=== PATIENT | male | born 1985 | race Caucasian/White ===

== ENCOUNTER 2018-03-06 21:05 | Observation (INO) | payer BC ==
[2018-03-06] MEDS ORDERED: Ondansetron ODT 4 MG TAB ONE (21:34)
[2018-03-06 21:59] LABS: #Basophils 0.1 thou/uL (0.0-0.2); #Eosinphils 0.2 thou/uL (0.0-0.7); #Lymphocytes 2.3 thou/uL (1.20-3.40); #Monocytes 0.8 thou/uL (0.11-0.59); #Neutrophils 6.8 thou/uL (1.40-6.50); %Basophils 0.6 % (0.0-1.0); %Eosinophils 1.8 % (0.0-10.0); %Lymphocytes 22.7 % (21.0-51.0); %Monocytes 8.1 % (0.0-10.0); %Neutrophils 66.7 % (42.0-75.0); Hemoglobin 16.8 g/dL (14.0-18.0); Mean Corpuscular HGB CONC 35.6 g/dL (32.0-36.0); Mean Corpuscular Hemoglobin 32.9 pg (27.0-31.0); Mean Corpuscular Volume 92.6 fl (80.0-94.0); Mean Platelet Volume 8.3 fL (7.4-10.4); Platelet Count 326 thou/uL (130-400); RBC Distribution Width 11.7 % (11.5-14.5); White Blood Cell (WBC) Count 10.2 thou/uL (4.8-10.8)
[2018-03-06 22:10] LABS: ALT (SGPT) 26 U/L (8-55); AST (SGOT) 20 U/L (5-34); Albumin 4.8 g/dL (3.5-5.0); Alkaline Phosphatase 67 U/L (40-150); Anion Gap 14 mmol/L (10-20); BUN (Urea Nitrogen) 17 mg/dL (8.9-20.6); Bilirubin, Total 0.5 mg/dL (0.2-1.2); Calc. Creatinine Clearance 0 mL/min (70-130); Carbon Dioxide 27 mmol/L (22-29); Chloride 101 mmol/L (98-107); Estimated GFR-MDRD 87; Globulin 3.1 g/dL (2.4-3.5); Glucose 115 mg/dL (70-105); Lipase 14 U/L (8-78); Potassium 3.9 mmol/L (3.5-5.1); Protein, Total 7.9 g/dL (6.0-8.3); Sodium 138 mmol/L (136-145)
[2018-03-06] MEDS ORDERED: Lidocaine 2% Jelly 5 ML TUBE ONE (22:31)
[2018-03-06] MEDS ORDERED: Benzocaine 20% Spray 60 ML CAN ONE (22:31)
[2018-03-06] MEDS ORDERED: Promethazine HCl 25 MG/ML VIAL ONE (22:32)
[2018-03-06] MEDS ORDERED: Ketorolac Tromethamine 30 MG/ML VIAL ONE (22:32)
[2018-03-06] MEDS ORDERED: Dextrose 5% in Water 1,000 ML IV PRN (22:50)
[2018-03-06] MEDS ORDERED: hydrALAZINE 20 MG/ML VIAL SLOW IVP PRN (22:50)
[2018-03-06] MEDS ORDERED: Morphine 4 MG/ML VIAL SLOW IVP PRN ×2 (22:50)
[2018-03-06] MEDS ORDERED: Dextrose 50% Abboject 50 ML SYRINGE SLOW IVP PRN (22:50)
[2018-03-06] MEDS ORDERED: Acetaminophen 1,000 MG in Premix Bag 1 BAG IVPB PRN (22:53)
[2018-03-06] MEDS ORDERED: Ketorolac Tromethamine 30 MG/ML VIAL IVP PRN (22:53)
[2018-03-06] MEDS ORDERED: Lactated Ringer's 1,000 ML IV SCH (23:00)
[2018-03-06] MEDS ORDERED: Ketorolac Tromethamine 30 MG/ML VIAL IVP SCH (23:00)
--- NOTE | 2018-03-06 23:26 | RAD ---
ABDOMEN ONE VIEW: 03/06/18 HISTORY: 32-year-old male with history of right lower quadrant pain for NG tube placement. The NG tube is well within the stomach in good position. No significant bowel obstruction. IMPRESSION: NG tube in place in good position. POS: [facility]
[2018-03-06] MEDS ORDERED: Acetaminophen 1,000 MG in Premix Bag 1 BAG IVPB SCH (23:59)
[2018-03-07] MEDS: Lactated Ringer's 1,000 ML IV SCH ×3 (00:15→13:39)
[2018-03-07] MEDS ORDERED: Fentanyl 100 MCG/2 ML VIAL SLOW IVP PRN (00:34)
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
[2018-03-07 04:20] LABS: #Eosinphils 0.1 thou/uL (0.0-0.7); #Monocytes 0.6 thou/uL (0.11-0.59); #Neutrophils 8.7 thou/uL (1.40-6.50); %Basophils 0.2 % (0.0-1.0); %Eosinophils 0.5 % (0.0-10.0); %Lymphocytes 9.6 % (21.0-51.0); %Monocytes 5.8 % (0.0-10.0); %Neutrophils 83.8 % (42.0-75.0); Hemoglobin 15.5 g/dL (14.0-18.0); Mean Corpuscular HGB CONC 33.8 g/dL (32.0-36.0); Mean Corpuscular Hemoglobin 31.1 pg (27.0-31.0); Platelet Count 302 thou/uL (130-400); RBC Distribution Width 11.7 % (11.5-14.5); Red Blood Cell (RBC) Count 4.97 mill/uL (4.70-6.10); White Blood Cell (WBC) Count 10.4 thou/uL (4.8-10.8)
[2018-03-07 04:32] LABS: Anion Gap 14 mmol/L (10-20); BUN (Urea Nitrogen) 17 mg/dL (8.9-20.6); Calc. Creatinine Clearance 149 mL/min (70-130); Calcium 9.3 mg/dL (7.8-10.44); Carbon Dioxide 26 mmol/L (22-29); Chloride 103 mmol/L (98-107); Estimated GFR-MDRD 82; Glucose 117 mg/dL (70-105); Potassium 4.7 mmol/L (3.5-5.1); Sodium 138 mmol/L (136-145)
[2018-03-07] MEDS ORDERED: MD-Gastroview 120 ML BOT ONE (06:34)
[2018-03-07] MEDS ORDERED: Famotidine/PF 20 mg/2ml Vial SLOW IVP SCH (09:00)
--- NOTE | 2018-03-07 10:44 | RAD ---
2 VIEW ABDOMEN: Date: 03/07/18 Supine and upright views obtained. HISTORY: Small bowel obstruction. FINDINGS: Correlation made to CT scan from yesterday. Contrast from the CT examination is seen throughout the colon. There is a gas-filled, dilated loop of small bowel in the mid abdomen, which corresponds to yesterday's CT finding. No free air. This loop of small bowel in the mid abdomen exhibits a differential air fluid on the upright exam which does in dicate a small bowel obstructive process. A NG tube is in place and coiled in the upper gastric fundus. IMPRESSION: Contrast has passed through the small bowel and into the colon; however, there remains gas-filled, di lated loops of small bowel in the mid abdomen with differential air fluid levels indicating a partial small bowel obstruction. POS: [facility]
[2018-03-07] MEDS: Famotidine 40 MG/4 ML VIAL SLOW IVP SCH ×2 (11:17→20:55)
--- NOTE | 2018-03-07 13:03 | RAD ---
SMALL BOWEL EXAM: Date: 03/07/18 Patient was given Gastrografin via NG tube. A 2 hour film was obtained. FINDINGS/IMPRESSION: On the 2 hour film, contrast has traversed the small bowel and fills the entire colon to the level of the rectum. Visualized small bowel loops appear unremarkable. POS: [facility]
--- NOTE | 2018-03-07 15:16 | PRG ---
DATE OF SERVICE: 03/07/2018 SUBJECTIVE: Mr. Booker is doing well today. His 2-view abdominal x-ray this morning showed dilated small bowel loops with contrast from his CAT scan obtained earlier yesterday has reached his colon. He has not yet had a bowel movement as of this morning, but he did have some distended small bowel lo ops in the central abdomen. The patient underwent a Gastrografin small bowel follow-through with con trast transitioning into the colon within 2 hours he has had multiple bowel movements. He still has right upper quadrant pain. The patient on his CAT scan has gallbladder is full of stones. The patie nt reports having prior episodes of epigastric right upper quadrant pain coming and going for which h e is taking Gas-X and PPIs with only partial relief. He has been having symptoms of biliary colic. His liver function tests were normal on admission. OBJECTIVE: LUNGS: Clear to auscultation. CARDIAC: Regular rate and rhythm without murmur or gallop. ABDOMEN: Soft, nontender except in his right upper quadrant where he has guarding of his gallbladder . ASSESSMENT AND PLAN: Cholecystitis. We will begin Levaquin. Plan laparoscopic cholecystectomy adria rrow. Risk of infection, bleeding, visceral biliary injury, possible open procedure discussed, incre ased risk of adhesions due to multiple prior abdominal operations discussed. Questions answered. We will remove his NG tube today and allowing him to have full liquids and plan laparoscopic cholecyste ctomy tomorrow.
[2018-03-07] MEDS ORDERED: Enoxaparin Sodium 40 MG/0.4 ML SYRINGE SC SCH (21:00)
[2018-03-08 05:41] VITALS: TEMP 97.7
[2018-03-08 05:43] VITALS: BMI 33.9
[2018-03-08] MEDS ORDERED: Sodium Chloride 0.9% 1,000 ML IV SCH (08:00)
[2018-03-08] MEDS: Famotidine 40 MG/4 ML VIAL SLOW IVP SCH (09:17)
[2018-03-08] MEDS ORDERED: Fentanyl 100 MCG/2 ML VIAL ONE ×5 (10:01→13:03)
[2018-03-08] MEDS ORDERED: Midazolam HCl 2 mg/2 ml Vial ONE (10:01)
[2018-03-08] MEDS ORDERED: HYDROmorphone 0.5 MG/0.5 ML SYRINGE ONE (10:02)
[2018-03-08] MEDS ORDERED: Bupivacaine HCl 0.5%/Epinephrine 1:200,000/PF 30 ml Vial ONE (10:09)
[2018-03-08] MEDS ORDERED: traMADol HCl 50 MG TAB PO PRN ×2 (11:39)
[2018-03-08] MEDS ORDERED: Acetaminophen 500 MG TAB PO PRN (11:39)
[2018-03-08] MEDS ORDERED: Ibuprofen 600 MG TAB PO PRN (11:39)
[2018-03-08] MEDS ORDERED: Ondansetron HCl/PF 4 MG/2 ML Vial IVP PRN (11:50)
[2018-03-08] MEDS ORDERED: Promethazine HCl 25 MG/ML VIAL SLOW IVP PRN (11:50)
[2018-03-08] MEDS ORDERED: Promethazine HCl 25 MG/ML VIAL IM PRN (11:50)
[2018-03-08] MEDS ORDERED: Ketorolac Tromethamine 30 MG/ML VIAL ONE (11:53)
[2018-03-08] MEDS ORDERED: Glycopyrrolate 0.2 MG/ML 5 ML SYRINGE ONE (11:53)
[2018-03-08] MEDS ORDERED: Lidocaine 1% PF 5 ML VIAL ONE (11:53)
[2018-03-08] MEDS ORDERED: PROPOFOL 200 MG/20 ML VIAL ONE (11:53)
--- NOTE | 2018-03-08 12:07 | OP ---
DATE OF OPERATION: 03/08/2018 PREOPERATIVE DIAGNOSES: Cholecystitis, cholelithiasis. POSTOPERATIVE DIAGNOSES: Cholecystitis, cholelithiasis. PROCEDURE: Laparoscopic video cholecystectomy. SURGEON: Juan Cortez M.D. ANESTHESIA: General. Local 0.5% Marcaine with epinephrine, 30 mL total volume used. PROCEDURE IN DETAIL: The patient taken to the operating room under general anesthesia, abdomen was p repared with ChloraPrep, draped in routine fashion. Local anesthetic infiltrated into the skin and s ubcutaneous tissue about each port site. Infraumbilical incision made. Pneumoperitoneum to 15 mmHg were obtained with the Veress needle, replacing it with a 5 port, video laparoscope inserted. Right subxiphoid incision made and 11 port placed. Right subcostal incision made mid clavicular line and a nterior axillary lines and 5 ports placed. There were a few omental adhesions and these were taken d own with cautery, freeing the liver edge and the gallbladder grasping the fundus of the gallbladder, reflecting it cephalad dissecting the body free of omental adhesions taking them down, identifying th e infundibulum and grasping the infundibulum and reflecting it laterally. Cystic artery and duct dis sected free. Critical view obtained. Cystic artery and duct doubly clipped proximally, divided, and gallbladder dissected free of the liver bed obtaining good hemostasis prior to division of final per itoneal attachments. Gallbladder and gallstones removed and submitted to Pathology. Good hemostasis ensured with the cautery. Irrigant and pneumoperitoneum evacuated. All instruments removed and all skin incisions approximated with interrupted subdermal 4-0 Monocryl and DermaGlue applied. The sandeep ent tolerated the procedure well.
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
[2018-03-08] MEDS ORDERED: Promethazine HCl 25 MG/ML VIAL ONE (12:53)
[2018-03-08 14:32] VITALS: BP 122/78
== END 2018-03-08 16:07 | disposition home or self-care (01) ==
LOC: ERS 21:05 → SURG A 03-07 00:03
PROVIDERS: ADMIT Specialist; ATTEND Specialist
PROC: 0FT44ZZ Resection of Gallbladder, Percutaneous Endoscopic Approach (ICD-10-PCS; principal; 2018-03-08)
DX: K80.10 Calculus of gallbladder with chronic cholecystitis without obstruction (principal); K56.609 Unspecified intestinal obstruction, unspecified as to partial versus complete obstruction; Z98.890 Other specified postprocedural states
CPT/HCPCS: 36415; 74018; 74019; 74250; 80048; 83690; 85025; 88304; 96361; 96372; 96374; 96375; 96376; G0378; J0131; J0670; J1170; J1650; J1885; J1956; J2001; J2250; J2550; J2704; J3010; Q0162